=== PATIENT | female | born 1970 ===

== ENCOUNTER 2017-11-25 13:15 | Inpatient (IN) | payer OTHER ==
[~2017-11-25] VITALS: Ht 172.7 cm; Wt 90.7 kg
[2017-12-03] MEDS ORDERED: GABAPENTIN800 MG PO (12:09)
[2017-12-03] MEDS ORDERED: DOCUSATE SODIU100 MG PO (12:09)
[2017-12-03] MEDS ORDERED: PERCOCET 5-3251 EACH PO (12:10)
[2017-12-03] MEDS ORDERED: AMOX-CLAV 875-1 EACH PO (12:10)
[2017-12-03] MEDS ORDERED: CLONAZEPAM1 MG PO (12:10)
== END 2017-12-03 15:35 | disposition home or self-care (01) | DRG 460 ==
LOC: O/R 12-02 05:29 → PED 12-02 05:29 → SURH 12-02 13:14 → PED 12-02 15:04 → SURH 12-02 15:15 → PED 12-03 15:35
PROVIDERS: Orthopaedic Surgery Orthopaedic Surgery of the Spine
PROC: 0SG30AJ Fusion of Lumbosacral Joint with Interbody Fusion Device, Posterior Approach, Anterior Column, Open Approach (ICD-10-PCS; 2017-12-02)
PROC: 0ST40ZZ Resection of Lumbosacral Disc, Open Approach (ICD-10-PCS; 2017-12-02)
PROC: 07DS3ZZ Extraction of Vertebral Bone Marrow, Percutaneous Approach (ICD-10-PCS; 2017-12-02)
PROC: 00NY0ZZ Release Lumbar Spinal Cord, Open Approach (ICD-10-PCS; principal; 2017-12-02 15:15)
DX: M51.17 Intervertebral disc disorders with radiculopathy, lumbosacral region (principal); M47.27 Other spondylosis with radiculopathy, lumbosacral region; M48.07 Spinal stenosis, lumbosacral region